=== PATIENT | female | born 1950 | race Caucasian/White ===

== ENCOUNTER → 2016-08-27 | Outpatient (CLI) | payer OTHER | END | disposition home or self-care (01) | LOC: CFH 13:58 | PROVIDERS: ATTEND Orthopaedic Surgery | DX: S82.62XA Displaced fracture of lateral malleolus of left fibula, initial encounter for closed fracture (principal); X58.XXXA Exposure to other specified factors, initial encounter; Y93.89 Activity, other specified; Y92.89 Other specified places as the place of occurrence of the external cause; Y99.8 Other external cause status ==

== ENCOUNTER 2016-09-03 09:49 | Day surgery (SDC) | payer OTHER ==
[~2016-09-03] VITALS: Ht 162.6 cm; Wt 70.2 kg
[2016-09-03 10:37] VITALS: BP 117/80
[2016-09-03] MEDS ORDERED: VORT20TA PO (10:56)
[2016-09-03] MEDS ORDERED: ATOR40TA78 PO (10:56)
[2016-09-03] MEDS ORDERED: ACET-1600 PO (10:57)
[2016-09-03] MEDS ORDERED: ACET650S21 PO (10:57)
[2016-09-03] MEDS ORDERED: LIDOCAINE 1%, 2ML ONE (11:08)
[2016-09-03] MEDS ORDERED: ROPIvacaine/PF 0.5%, 30 ML ONE (11:21)
[2016-09-03] MEDS ORDERED: BUPIVACAINE 0.25% ONE (11:21)
[2016-09-03] MEDS ORDERED: FENTANYL PF 250 MCG/5ML ONE (11:48)
[2016-09-03] MEDS ORDERED: MIDAZOLAM 1 MG/ML, 2ML ONE (11:48)
[2016-09-03] MEDS ORDERED: METOCLOPRAMIDE 5 MG/ML, 2ML ONE (12:40)
[2016-09-03] MEDS ORDERED: DEXAMETHASONE 4 MG/ML, 1ML ONE (12:40)
[2016-09-03] MEDS ORDERED: ONDANSETRON 2MG/ML, 2ML ONE (12:40)
[2016-09-03] MEDS ORDERED: PROPOFOL 10 MG/ML, 20ML ONE (12:40)
[2016-09-03] MEDS ORDERED: CEFAZOLIN 1,000 MG ONE (12:40)
[2016-09-03] MEDS ORDERED: HYDROmorphone 1 MG/ML, 1ML IV PRN (13:30)
[2016-09-03] MEDS ORDERED: EPHEDRINE 50 MG/ML, 1ML IVPush PRN (13:30)
[2016-09-03] MEDS ORDERED: METOPROLOL 1 MG/ML, 5ML IV PRN (13:30)
[2016-09-03] MEDS ORDERED: ALBUTEROL SULFATE 2.5 MG/3 ML NPPB PRN (13:30)
[2016-09-03] MEDS ORDERED: ACETAMINOPHEN 325 MG TABLET PO PRN (13:30)
[2016-09-03] MEDS ORDERED: FENTANYL PF 100 MCG/2ML IV PRN (13:30)
[2016-09-03] MEDS ORDERED: LABETALOL 5MG/ML, 20ML IV PRN (13:30)
[2016-09-03] MEDS ORDERED: ONDANSETRON 2MG/ML, 2ML IVPush PRN (13:30)
[2016-09-03] MEDS ORDERED: OXYcodone 5 MG/5 ML ORAL.SOL UDC PO PRN (13:30)
[2016-09-03] MEDS ORDERED: hydrALAzine 20 MG/ML, 1ML IV PRN (13:30)
[2016-09-03] MEDS ORDERED: ACETAMINOPHEN 650 MG/20.3 ML UDC ONE (15:08)
[2016-09-03] MEDS ORDERED: OXYcodone 5 MG/5 ML ORAL.SOL UDC ONE (15:09)
== END 2016-09-03 16:40 ==
LOC: OUT 09:49
PROVIDERS: ATTEND Orthopaedic Surgery
DX: S82.842P Displaced bimalleolar fracture of left lower leg, subsequent encounter for closed fracture with malunion (principal); Z72.89 Other problems related to lifestyle; Z87.891 Personal history of nicotine dependence; X58.XXXD Exposure to other specified factors, subsequent encounter
CPT/HCPCS: 27814; 27829; 73600; 76001; 87070; 87075; 87205; 93005; J0690; J1100; J2250; J2405; J2704; J2765; J2795; J3010; J3490

== ENCOUNTER → 2017-08-25 | Outpatient (CLI) | payer OTHER ==
[~2017-08-25] MED LIST: ACET-1600 PO; ACET650S21 PO; ACYC-114 PO; ATOR40TA78 PO; FEXO1TAB25 PO; FLUT9.9S NS; VORT20TA PO
== END | disposition home or self-care (01) ==
LOC: STAR 12:29
PROVIDERS: ATTEND Orthopaedic Surgery
DX: Z01.818 Encounter for other preprocedural examination (principal); S82.62XA Displaced fracture of lateral malleolus of left fibula, initial encounter for closed fracture; M25.572 Pain in left ankle and joints of left foot
CPT/HCPCS: 93005

== ENCOUNTER 2017-09-02 09:59 | Day surgery (SDC) | payer OTHER ==
[~2017-09-02] VITALS: Ht 160 cm; Wt 72.8 kg
[2017-09-02] MEDS ORDERED: LACTATED RINGERS 1,000 ML IV SCH (10:34)
[2017-09-02 10:36] VITALS: BP 155/94
[2017-09-02] MEDS ORDERED: ACETAMINOPHEN 500 MG TABLET PO ONE (11:00)
[2017-09-02] MEDS ORDERED: ONDANSETRON ODT 8 MG PO ONE (11:00)
[2017-09-02] MEDS ORDERED: GABAPENTIN 300 MG CAPSULE PO ONE (11:00)
[2017-09-02] MEDS ORDERED: FENTANYL PF 100 MCG/2ML ONE (11:22)
[2017-09-02] MEDS ORDERED: MIDAZOLAM 1 MG/ML, 2ML ONE (11:22)
[2017-09-02] MEDS ORDERED: CEFAZOLIN 1,000 MG ONE (11:23)
[2017-09-02] MEDS ORDERED: ROPIvacaine/PF 0.5%, 30 ML ONE (11:23)
[2017-09-02] MEDS ORDERED: PROPOFOL 10 MG/ML, 20ML ONE (11:23)
[2017-09-02] MEDS ORDERED: DEXAMETHASONE 4 MG/ML, 1ML ONE (11:23)
[2017-09-02] MEDS ORDERED: ONDANSETRON 2MG/ML, 2ML ONE (11:23)
[2017-09-02] MEDS ORDERED: OXYcodone 5 MG/5 ML ORAL.SOL UDC PO PRN (12:30)
[2017-09-02] MEDS ORDERED: LABETALOL 5MG/ML, 20ML IV PRN (12:30)
[2017-09-02] MEDS ORDERED: MIDAZOLAM 1 MG/ML, 2ML IV PRN (12:30)
[2017-09-02] MEDS ORDERED: SCOPOLAMINE PATCH, 1.5MG PATCH.TD72 TD PRN (12:30)
[2017-09-02] MEDS ORDERED: PROMETHAZINE 25 MG/ML, 1ML IM PRN (12:30)
[2017-09-02] MEDS ORDERED: FENTANYL PF 100 MCG/2ML IV PRN (12:30)
[2017-09-02] MEDS ORDERED: DIAZEPAM 5 MG/ML, 2ML IVPush PRN (12:30)
[2017-09-02] MEDS ORDERED: MEPERIDINE/PF 25MG/0.5ML IVPush PRN (12:30)
[2017-09-02] MEDS ORDERED: hydrALAzine 20 MG/ML, 1ML IV PRN (12:30)
[2017-09-02] MEDS ORDERED: MORPHINE SULFATE 4 MG/ML, 1ML IVPush PRN (12:30)
[2017-09-02] MEDS ORDERED: EPHEDRINE 50 MG/ML, 1ML IM PRN (12:30)
[2017-09-02] MEDS ORDERED: HYDROmorphone 2 MG/ML, 1ML IV PRN (12:30)
[2017-09-02] MEDS ORDERED: ALBUTEROL/IPRATROPIUM 2.5MG/0.5MG, 3 ML NPPB PRN (12:30)
[2017-09-02] MEDS ORDERED: PROMETHAZINE 25 MG/ML, 1ML IV PRN (12:30)
== END 2017-09-02 16:35 ==
LOC: OUT 09:59
PROVIDERS: ATTEND Orthopaedic Surgery
DX: M24.672 Ankylosis, left ankle (principal); T84.84XA Pain due to internal orthopedic prosthetic devices, implants and grafts, initial encounter; Y83.8 Other surgical procedures as the cause of abnormal reaction of the patient, or of later complication, without mention of misadventure at the time of the procedure; Y92.89 Other specified places as the place of occurrence of the external cause; Z87.891 Personal history of nicotine dependence
CPT/HCPCS: 20680; 29898; 64445; 73600; 76001; J0690; J1100; J2250; J2405; J2704; J2795; J3010; J7120; Q0162